=== PATIENT | female | born 1935 | race Caucasian/White ===

== ENCOUNTER 2016-11-20 08:01 | Day surgery (SDC) | payer MEDICARE, BC ==
[2016-11-20 10:22] VITALS: TEMP 96.5
[2016-11-20 10:49] VITALS: BP 148/77; PULSE 50; RESP 20; O2SAT 97
== END 2016-11-20 11:01 | disposition home or self-care (01) | DRG 392 ==
LOC: SURG 08:01
PROVIDERS: ATTEND Internal Medicine Gastroenterology
DX: K21.9 Gastro-esophageal reflux disease without esophagitis (principal); Q39.8 Other congenital malformations of esophagus; Z87.11 Personal history of peptic ulcer disease; K44.9 Diaphragmatic hernia without obstruction or gangrene; K31.7 Polyp of stomach and duodenum
CPT/HCPCS: J2001; J2704

== ENCOUNTER 2017-10-31 09:53 | Day surgery (SDC) | payer MEDICARE, BC ==
[2017-10-31] MEDS ORDERED: ACETAZOLAMIDE 250 MG PO ONE (09:57)
[2017-10-31] MEDS: PROPARACAINE HCL 0.5% OPHTHALMIC SOL ONE ×3 (10:19→11:45)
[2017-10-31] MEDS: PHENYLEPHRINE HCL 10% OPHTHAL SOL ONE ×2 (10:19→10:32)
[2017-10-31] MEDS: KETOROLAC 0.5% OPTH 60 DROP SOL ONE ×2 (10:20→10:33)
[2017-10-31] MEDS: CYCLOPENTOLATE 1% SOL ONE ×2 (10:20→10:33)
[2017-10-31] MEDS ORDERED: MIDAZOLAM 2 MG/2 ML SOL ONE (11:16)
[2017-10-31] MEDS ORDERED: FENTANYL 100MCG/2ML SOL ONE (11:22)
[2017-10-31] MEDS ORDERED: POVIDONE IODINE 5% SOL ONE (11:41)
[2017-10-31] MEDS ORDERED: BSS 500 ML 500 ML IR ONE (11:41)
[2017-10-31] MEDS ORDERED: LIDOCAINE HCL 1% MPF SOL ONE (11:41)
[2017-10-31 12:45] VITALS: BP 111/48; PULSE 62; RESP 20; TEMP 97; O2SAT 96
== END 2017-10-31 12:45 | disposition home or self-care (01) | DRG 125 ==
LOC: SURG 09:53
PROVIDERS: ATTEND Ophthalmology
DX: H25.9 Unspecified age-related cataract (principal)
CPT/HCPCS: J2250; J3010; A9270-GY; J2001

== ENCOUNTER 2017-11-26 06:51 | Day surgery (SDC) | payer MEDICARE, BC ==
[2017-11-26] MEDS ORDERED: LIDOCAINE HCL 1% MPF SOL ONE (07:00)
[2017-11-26] MEDS ORDERED: PROPOFOL 500 MG/50 ML EMU IV ONE (07:00)
[2017-11-26 08:52] VITALS: O2SAT 97
[2017-11-26 09:05] VITALS: BP 122/59; PULSE 60; RESP 12; TEMP 97.2
== END 2017-11-26 10:00 | disposition home or self-care (01) | DRG 382 ==
LOC: SURG 06:51
PROVIDERS: ATTEND Internal Medicine Gastroenterology
DX: K22.70 Barrett's esophagus without dysplasia (principal); K31.89 Other diseases of stomach and duodenum; K44.9 Diaphragmatic hernia without obstruction or gangrene
CPT/HCPCS: J2001; J2704